=== PATIENT | female | born 1945 | race Caucasian/White ===

== ENCOUNTER → 2020-11-01 | Outpatient (CLI) | payer MEDICARE, OTHER ==
[~2020-11-01] MED LIST: ASPIRIN CHEWABL81 MG PO; ATIVAN0.5 MG PO; BENZONATATE200 MG PO; CALCIUM + D SO1 EACH PO; CALCIUM CARBON600 MG PO; CHIA SEEDS PO; CLARITIN-D 241 EACH PO; CONSTULOSE10 GM/15 M PO; COREG 3.125M3.125 MG PO; DEXILANT60 MG PO; FEOSOL325 MG PO; IBUPROFEN800 MG PO; LODINE CAP 300300 MG PO; LOTENSIN HCT 21 EACH PO; NORCO 10-325 T1 EACH PO; ONE DAILY1 EACH PO; REQUIP0.5 MG PO; SERTRALINE HCL100 MG PO; SINEQUAN CAP 1010 MG PO; TUSSIN DM CLEA118 M1 PO; VITAMIN B-12100 MCG PO; VITAMIN B-121000 MCG PO; VITAMIN D31000 UNI1 PO; VITAMIN E400 UNI2 PO; ZOFRAN4 MG PO; [UNRECOGNIZED DRUG - OTHER] PO
== END ==
LOC: CT 07:53
DX: C56.1 Malignant neoplasm of right ovary (principal); C56.2 Malignant neoplasm of left ovary; R05 Cough; Z12.89 Encounter for screening for malignant neoplasm of other sites; R91.8 Other nonspecific abnormal finding of lung field
CPT/HCPCS: 71260; Q9967

== ENCOUNTER → 2021-03-17 | Outpatient (CLI) | payer MEDICARE, OTHER | LOC: CT 11:06 | DX: Z12.89 Encounter for screening for malignant neoplasm of other sites (principal); C56.1 Malignant neoplasm of right ovary; C56.2 Malignant neoplasm of left ovary; R05 Cough; K44.9 Diaphragmatic hernia without obstruction or gangrene; R91.8 Other nonspecific abnormal finding of lung field | CPT/HCPCS: 71260; Q9967 ==

== ENCOUNTER → 2021-07-11 | Outpatient (CLI) | payer MEDICARE, OTHER | LOC: CT 09:00 | DX: C56.1 Malignant neoplasm of right ovary (principal); C56.2 Malignant neoplasm of left ovary; R05.9 Cough, unspecified; Z12.89 Encounter for screening for malignant neoplasm of other sites; R91.1 Solitary pulmonary nodule; K76.89 Other specified diseases of liver | CPT/HCPCS: 71260; 96360; Q9967 ==

== ENCOUNTER → 2021-10-20 | Outpatient (CLI) | payer MEDICARE, OTHER | LOC: CT 10-10 10:00 | DX: M25.552 Pain in left hip (principal); C56.1 Malignant neoplasm of right ovary; C56.2 Malignant neoplasm of left ovary; Z12.89 Encounter for screening for malignant neoplasm of other sites; R05.9 Cough, unspecified; R91.8 Other nonspecific abnormal finding of lung field; K66.8 Other specified disorders of peritoneum; M16.0 Bilateral primary osteoarthritis of hip; M85.852 Other specified disorders of bone density and structure, left thigh; M85.851 Other specified disorders of bone density and structure, right thigh; M21.952 Unspecified acquired deformity of left thigh | CPT/HCPCS: 71260; 73502; Q9967 ==

== ENCOUNTER → 2022-01-09 | Outpatient (CLI) | payer MEDICARE, OTHER | LOC: CT 14:30 | DX: C56.1 Malignant neoplasm of right ovary (principal); C56.2 Malignant neoplasm of left ovary; R05.9 Cough, unspecified; R91.1 Solitary pulmonary nodule; K66.8 Other specified disorders of peritoneum; K76.9 Liver disease, unspecified | CPT/HCPCS: 71260; Q9967 ==

== ENCOUNTER → 2022-04-13 | Outpatient (CLI) | payer MEDICARE, OTHER | LOC: CT 11:30 | DX: Z12.89 Encounter for screening for malignant neoplasm of other sites (principal); C56.1 Malignant neoplasm of right ovary; C56.2 Malignant neoplasm of left ovary; R05.9 Cough, unspecified; R91.8 Other nonspecific abnormal finding of lung field; K76.9 Liver disease, unspecified | CPT/HCPCS: 71260; Q9967 ==